=== PATIENT | female | born 1990 | race American Indian/Alaskan Native ===

== ENCOUNTER 2016-10-04 08:03 | Outpatient (CLI) | payer MEDICAID ==
[2016-10-04 09:21] VITALS: BP 137/67
[2016-10-04 11:11] LABS: Bacteria,Urine 1+ /HPF (Negative); Bilirubin,Urine NEG (Negative); Blood,Urine SM (Negative); Ketones,Urine NEG (Negative); Leukocyte Esterase,Urine NEG (Negative); Mucus,Urine FEW /HPF; Nitrite,Urine NEG (Negative); Protein,Urine <15 mg/dL mg/dL (Negative); Urobilinogen,Urine < 2.0 mg/dL (<2.0)
[2016-10-04] MEDS ORDERED: LACTATED RINGERS 500 ML IV ONE (13:34)
== END 2016-10-04 12:00 | disposition home or self-care (01) ==
LOC: TRG 08:03
PROVIDERS: ATTEND Obstetrics & Gynecology
DX: O77.9 Labor and delivery complicated by fetal stress, unspecified (principal); O47.9 False labor, unspecified; Z3A.00 Weeks of gestation of pregnancy not specified
CPT/HCPCS: 59025; 81001

== ENCOUNTER 2016-11-27 13:20 | Observation (INO) | payer MEDICAID ==
[2016-11-27] MEDS ORDERED: LACTATED RINGERS 500 ML IV ONE (13:37)
[2016-11-27] MEDS ORDERED: LACTATED RINGERS 1,000 ML ONE ×3 (14:05→17:06)
[2016-11-27] MEDS ORDERED: STADOL IV PRN (16:49)
[2016-11-27] MEDS ORDERED: LACTATED RINGERS 1,000 ML IV SCH (22:00)
[2016-11-27 23:35] LABS: Bacteria,Urine 1+ /HPF (Negative); Bilirubin,Urine NEG (Negative); Blood,Urine NEG (Negative); Ketones,Urine 20 mg/dL (Negative); Leukocyte Esterase,Urine NEG (Negative); Mucus,Urine FEW /HPF; Nitrite,Urine NEG (Negative); Protein,Urine <15 mg/dL mg/dL (Negative)
[2016-11-27 23:51] VITALS: BP 122/84
[2016-11-28] MEDS ORDERED: ALUM-MAG HYDROX-SIMETH 200-200-20MG/5ML PO PRN (01:38)
== END 2016-11-28 03:22 | disposition home or self-care (01) ==
LOC: TRG 13:20 → LD 18:40 → TRG 18:42 → LD 20:34
PROVIDERS: ADMIT Obstetrics & Gynecology; ATTEND Obstetrics & Gynecology
DX: O26.893 Other specified pregnancy related conditions, third trimester (principal); R10.9 Unspecified abdominal pain; Z3A.36 36 weeks gestation of pregnancy
CPT/HCPCS: 59025; 81001; 87086; 96361; 96374; G0378; J0595; J7120; 96360

== ENCOUNTER 2017-09-24 11:52 | Emergency (ER) | payer SELFPAY ==
[2017-09-25 01:48] VITALS: BP 156/96
== END 2017-09-25 17:12 | disposition left against medical advice (07) ==
LOC: ED 11:52
DX: Z53.21 Procedure and treatment not carried out due to patient leaving prior to being seen by health care provider (principal)

== ENCOUNTER 2018-04-06 00:07 | Emergency (ER) | payer OTHER ==
[2018-04-06 02:45] LABS: Basophils % (Auto) 0.4 % (0.0-1.8); Eosinophils % (Auto) 0.2 % (0.0-4.3); Hematocrit 43.8 % (30.3-42.9); Hemoglobin 14.9 gm/dl (10.1-14.3); Lymphocytes # (Auto) 1.5 K/mm3 (1.2-5.4); Lymphocytes % (Auto) 13.8 % (13.4-35.0); Mean Corpuscular HGB Conc 34 % (30-34); Mean Corpuscular Hemoglobin 30 pg (28-32); Mean Corpuscular Volume 88 fl (79-97); Monocytes # (Auto) 0.3 K/mm3 (0.0-0.8); Monocytes % (Auto) 3.1 % (0.0-7.3); Platelet Count 203 K/mm3 (140-440); Red Blood Count 5.01 M/mm3 (3.65-5.03); Red Cell Distribution Width 12.8 % (13.2-15.2)
[2018-04-06 03:09] LABS: BUN/Creatinine Ratio 22; Blood Urea Nitrogen 13 mg/dL (7-17); Calcium 9.9 mg/dL (8.4-10.2); Hemolysis Index 2
[2018-04-06 04:36] LABS: Bacteria,Urine 1+ /HPF (Negative); Bilirubin,Urine NEG (Negative); Blood,Urine NEG (Negative); Color,Urine Yellow (Yellow); Mucus,Urine 1+ /HPF
[2018-04-06 07:24] VITALS: BP 134/87
--- NOTE | 2018-04-06 09:33 | Emergency Department Report ---
HPI - General Chief Complaint: Chest Pain Time Seen by Provider: 04/06/18 09:16 - HPI HPI: 27-year-old female presents to the emergency department from home, driving herself and to be seen, with complaints of headache, nausea, vomiting and palpitations. The patient was at a baby shower yesterday when she ate a homemade hamburger and says that she was driving home about 45 minutes to one hour later when she suddenly got very nauseated and had to [employer] because she began vomiting. She also had a bad headache at that time. The patient says that she does have a history of headaches that often get painful enough to where she has nausea and vomiting. While the patient was vomiting she began having some palpitations. The patient was able to drive herself home and thought she would sleep it off. She tried taken some Tylenol PM for the pain and to help her sleep but it did not work so she drove herself into the emergency department for further evaluation. She denies any fever, shortness of breath, back pain, abdominal pain. She denies any past medical history except for some anemia. She denies smoking or any illicit drug use or abuse. No recent travel or sick contacts at home. Currently the patient says that she feels much better and all of her symptoms have resolved. The only thing that she is experiencing now is some generalized body aches. ED Past Medical Hx - Past Medical History Previous Medical History?: Yes Hx Hypertension: Yes Hx Heart Attack/AMI: No Hx Diabetes: No Hx Deep Vein Thrombosis: No Hx Liver Disease: No Hx Renal Disease: No Hx Sickle Cell Disease: No Hx Seizures: No Hx Asthma: No Hx HIV: No Additional medical history: ANEMIA Takes Iron and Vitamin D - Surgical History Past Surgical History?: Yes Additional Surgical History: . d&C X 2 - Social History Smoking Status: Never Smoker - Medications Home Medications: Home Medications Medication Instructions Recorded Confirmed Last Taken Type Cholecalciferol (Vitamin D3) 1,000 unit PO 4XD 02/27/16 06/17/16 Unknown History [Vitamin D] Ferrous Sulfate [Feosol 325 MG tab] 325 mg PO BID #60 tablet 02/28/16 06/17/16 Unknown Rx Famotidine [Pepcid] 20 mg PO BID #30 tablet 06/17/16 Unknown Rx Mineral Oil 30 ml PO DAILY PRN #10 udc 06/17/16 Unknown Rx Pnv No.95/Ferrous Fum/Folic AC 1 each PO DAILY 06/17/16 06/17/16 Unknown History [ Caplet] ED Review of Systems ROS: Stated complaint: HEADACHE, VOMITING, CHEST PAIN Other details as noted in HPI Comment: All other systems reviewed and negative Constitutional: denies: chills, fever Eyes: denies: eye pain, eye discharge, vision change Respiratory: denies: cough, shortness of breath, wheezing Cardiovascular: palpitations. denies: edema Gastrointestinal: nausea, vomiting Genitourinary: denies: urgency, dysuria, discharge Musculoskeletal: myalgia. denies: joint swelling Skin: denies: rash, lesions Neurological: headache. denies: numbness Physical Exam - Physical Exam Vital Signs: Vital Signs 04/06/18 04/06/18 04/06/18 01:51 02:05 07:18 Temperature 98.3 F 98.5 F Pulse Rate 71 72 Respiratory 20 18 Rate Blood Pressure 137/93 137/93 134/87 O2 Sat by Pulse 97 100 Oximetry 04/06/18 09:06 Temperature Pulse Rate Respiratory 15 Rate Blood Pressure O2 Sat by Pulse Oximetry ED Course Vital Signs 04/06/18 04/06/18 04/06/18 01:51 02:05 07:18 Temperature 98.3 F 98.5 F Pulse Rate 71 72 Respiratory 20 18 Rate Blood Pressure 137/93 137/93 134/87 O2 Sat by Pulse 97 100 Oximetry 04/06/18 09:06 Temperature Pulse Rate Respiratory 15 Rate Blood Pressure O2 Sat by Pulse Oximetry ED Medical Decision Making - Lab Data Result diagrams: 04/06/18 02:25 04/06/18 02:18 - EKG Data -: EKG Interpreted by Md EKG shows normal: sinus rhythm, axis, intervals, QRS complexes, ST-T waves Rate: normal - EKG Data When compared to previous EKG there are: previous EKG unavailable Interpretation: normal EKG Critical care attestation.: If time is entered above; I have spent that time in minutes in the direct care of this critically ill patient, excluding procedure time. ED Disposition Clinical Impression: Palpitations Nausea & vomiting Qualifiers: Vomiting type: unspecified Vomiting Intractability: non-intractable Qualified Code(s): R11.2 - Nausea with vomiting, unspecified Headache Qualifiers: Headache type: unspecified Headache chronicity pattern: unspecified pattern Intractability: not intractable Qualified Code(s): R51 - Headache Disposition: DC-01 TO HOME OR SELFCARE Is pt being admited?: No Condition: Stable Instructions: Acute Nausea and Vomiting (ED), Acute Headache (ED), Palpitations (ED) Additional Instructions: Please follow up with a primary care physician in the next few days. Return to the emergency Department with any worsening of your symptoms or any acute distress. I have given you the name of a local neurologist, Dr. Conde, to follow up regarding your history of headaches. Referrals: PRIMARY CARE,MD [Primary Care Provider] - 3-5 Days TIFFANY LARSON MD [Staff Physician] - 3-5 Days LIZANDRO CONDE MD [Staff Physician] - 3-5 Days
[2018-04-06 10:35] LABS: HCG Qualitative,Urine Negative (Negative)
== END 2018-04-06 10:45 | disposition home or self-care (01) ==
LOC: ED 00:07
DX: R11.2 Nausea with vomiting, unspecified (principal); R51 Headache; R00.2 Palpitations; I10 Essential (primary) hypertension
CPT/HCPCS: 36415; 80048; 81001; 81025; 84484; 84703; 85025; 93005; 93010; 99284